=== PATIENT | female | born 2000 | race Hispanic/Latino ===

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

== ENCOUNTER 2019-01-13 22:50 | Outpatient (CLI) | payer MEDICAID ==
[2019-01-14] MEDS ORDERED: LACTATED RINGERS 1,000 ML ONE (00:58)
--- NOTE | 2019-01-14 01:14 | Ultrasound Report ---
OB ultrasound limited with biophysical profile. 01/14/2019. HISTORY: Evaluate well being and amniotic fluid index. FINDINGS: A single viable intrauterine in the cephalic position has heart tones of 14 4 bpm. Amniotic fluid index is 8 cm. biophysical profile is 8 out of 8. IMPRESSION: 1. Indeterminate fluid index 8 cm. 2. Biophysical profile 8 of 8. Signer Name: Juancarlos Poole MD Signed: 01/14/2019 1:10 AM Workstation Name: [id number]
[2019-01-14] MEDS ORDERED: LACTATED RINGERS 1,000 ML IV ONE (01:20)
[2019-01-14 01:54] VITALS: BP 102/58
== END 2019-01-14 02:24 | disposition home or self-care (01) ==
LOC: TRG 22:50
PROVIDERS: ATTEND Obstetrics & Gynecology
DX: O9A.213 Injury, poisoning and certain other consequences of external causes complicating pregnancy, third trimester (principal); S00.83XA Contusion of other part of head, initial encounter; O47.03 False labor before 37 completed weeks of gestation, third trimester; O26.893 Other specified pregnancy related conditions, third trimester; R10.9 Unspecified abdominal pain; O99.333 Smoking (tobacco) complicating pregnancy, third trimester; F17.200 Nicotine dependence, unspecified, uncomplicated; Z3A.31 31 weeks gestation of pregnancy; Y04.0XXA Assault by unarmed brawl or fight, initial encounter; Y93.89 Activity, other specified; Y92.89 Other specified places as the place of occurrence of the external cause; Y99.8 Other external cause status
CPT/HCPCS: 76815; 76819; J7120

== ENCOUNTER 2020-04-30 18:13 | Outpatient (CLI) | payer MEDICAID ==
[2020-04-30] MEDS ORDERED: LACTATED RINGERS 500 ML IV ONE (19:08)
[2020-04-30 19:24] VITALS: BP 121/63
--- NOTE | 2020-04-30 20:00 | Ultrasound Report ---
ULTRASOUND OBSTETRIC LIMITED INDICATION / CLINICAL INFORMATION: ЕКАТЕРИНА. Clinical Gestational Age (GA) in weeks, days: 33, 1 TECHNIQUE: Transabdominal. COMPARISON: None available. FINDINGS: HEART RATE (beats per minute): 141 AMNIOTIC FLUID INDEX (cm) = 8.2 (normal = 7-24 cm) PRESENTATION: Cephalic. ADDITIONAL FINDINGS: None. IMPRESSION: 1. Normal amniotic fluid index. Signer Name: Nito Burrows MD Signed: 04/30/2020 7:55 PM Workstation Name: [id number]
== END 2020-04-30 19:49 | disposition home or self-care (01) ==
LOC: TRG 18:13 → APU 18:14 → TRG 19:49
PROVIDERS: ATTEND Obstetrics & Gynecology
DX: O42.913 Preterm premature rupture of membranes, unspecified as to length of time between rupture and onset of labor, third trimester (principal); Z3A.33 33 weeks gestation of pregnancy
CPT/HCPCS: 59025; 76815

== ENCOUNTER 2020-12-31 04:17 | Emergency (ER) | payer MEDICAID ==
[2020-12-31 04:48] VITALS: BP 110/64
--- NOTE | 2020-12-31 08:01 | Emergency Department Report ---
- General Chief complaint: Skin/Abscess/Foreign Body Stated complaint: BAD HUGE BUMP UNDER ARM Time Seen by Provider: 12/31/20 07:29 Source: patient Mode of arrival: Ambulatory Limitations: No Limitations - History of Present Illness Initial comments: 20-year-old female presents to the emergency room reporting an bump under her left underarm x3 to 4 days. Patient states last night the pain had gotten worse. Patient states that she has never had this before. She reports is worse with touching and putting down her arm fully. States that she is notices gotten larger. Patient denies any fever chills or nausea no vomiting. She has an allergy to morphine. Currently takes no medications on a daily basis. MD complaint: abscess/boil Onset/Timin -: days(s) Tetanus Up to Date: yes Location: RUE (Axillary) Severity: moderate Quality: aching, sharp Consistency: constant Worsens with: palpation Context: none Associated symptoms: denies other symptoms Treatments Prior to Arrival: none - Related Data Previous Rx's Medication Instructions Recorded Last Taken Type HYDROcodone/APAP 5-325 [[place] 1 - 2 each PO Q4HR PRN #30 tablet 02/08/19 Unknown Rx 5/325] Ferrous Sulfate [Feosol 325 MG tab] 325 mg PO BID #60 tablet 02/11/19 Unknown Rx Ibuprofen [Motrin 800 MG tab] 800 mg PO Q6H PRN #30 tablet 02/11/19 Unknown Rx Vit-Fe Fumar-FA [ 1 each PO QDAY #30 tablet 02/11/19 Unknown Rx Vitamin] Ibuprofen [Motrin] 600 mg PO Q8H PRN #60 tablet 05/29/20 Unknown Rx oxyCODONE /ACETAMINOPHEN [Percocet 1 tab PO Q6HR PRN #20 tablet 05/29/20 Unknown Rx 5/325] Ibuprofen [Motrin 600 MG tab] 600 mg PO Q8H PRN #30 tablet 12/31/20 Unknown Rx Sulfamethoxazole/Trimethoprim 1 each PO BID 7 Days #14 tablet 12/31/20 Unknown Rx [Bactrim DS TAB] Allergies Allergy/AdvReac Type Severity Reaction Status Date / Time morphine Allergy Severe Anaphylaxis Verified 04/30/20 18:58 Abscess Boil HPI - HPI Chief Complaint: Skin/Abscess/Foreign Body Stated Complaint: BAD HUGE BUMP UNDER ARM Time Seen by Provider: 12/31/20 07:29 Home Medications: Previous Rx's Medication Instructions Recorded Last Taken Type HYDROcodone/APAP 5-325 [[place] 1 - 2 each PO Q4HR PRN #30 tablet 02/08/19 Unknown Rx 5/325] Ferrous Sulfate [Feosol 325 MG tab] 325 mg PO BID #60 tablet 02/11/19 Unknown Rx Ibuprofen [Motrin 800 MG tab] 800 mg PO Q6H PRN #30 tablet 02/11/19 Unknown Rx Vit-Fe Fumar-FA [ 1 each PO QDAY #30 tablet 02/11/19 Unknown Rx Vitamin] Ibuprofen [Motrin] 600 mg PO Q8H PRN #60 tablet 05/29/20 Unknown Rx oxyCODONE /ACETAMINOPHEN [Percocet 1 tab PO Q6HR PRN #20 tablet 05/29/20 Unknown Rx 5/325] Ibuprofen [Motrin 600 MG tab] 600 mg PO Q8H PRN #30 tablet 12/31/20 Unknown Rx Sulfamethoxazole/Trimethoprim 1 each PO BID 7 Days #14 tablet 12/31/20 Unknown Rx [Bactrim DS TAB] Allergies/Adverse Reactions: Allergies Allergy/AdvReac Type Severity Reaction Status Date / Time morphine Allergy Severe Anaphylaxis Verified 04/30/20 18:58 ED Review of Systems ROS: Stated complaint: BAD HUGE BUMP UNDER ARM Other details as noted in HPI Comment: All other systems reviewed and negative ED Past Medical Hx - Past Medical History Previous Medical History?: Yes Hx Hypertension: No Hx Heart Attack/AMI: No Hx Congestive Heart Failure: No Hx Diabetes: No Hx Deep Vein Thrombosis: No Hx Renal Disease: No Hx Sickle Cell Disease: No Hx Seizures: No Hx Asthma: No Hx COPD: No Hx HIV: No Additional medical history: herpes - Surgical History Past Surgical History?: No - Social History Smoking Status: Current Every Day Smoker Substance Use Type: None - Medications Home Medications: Home Medications Medication Instructions Recorded Confirmed Last Taken Type HYDROcodone/APAP 5-325 [[place] 1 - 2 each PO Q4HR PRN #30 tablet 02/08/19 05/29/20 Unknown Rx 5/325] Ferrous Sulfate [Feosol 325 MG tab] 325 mg PO BID #60 tablet 02/11/19 05/29/20 Unknown Rx Ibuprofen [Motrin 800 MG tab] 800 mg PO Q6H PRN #30 tablet 02/11/19 05/29/20 Unknown Rx Vit-Fe Fumar-FA [ 1 each PO QDAY #30 tablet 02/11/19 05/29/20 Unknown Rx Vitamin] Ibuprofen [Motrin] 600 mg PO Q8H PRN #60 tablet 05/29/20 Unknown Rx oxyCODONE /ACETAMINOPHEN [Percocet 1 tab PO Q6HR PRN #20 tablet 05/29/20 Unknown Rx 5/325] Ibuprofen [Motrin 600 MG tab] 600 mg PO Q8H PRN #30 tablet 12/31/20 Unknown Rx Sulfamethoxazole/Trimethoprim 1 each PO BID 7 Days #14 tablet 12/31/20 Unknown Rx [Bactrim DS TAB] ED Physical Exam - General Limitations: No Limitations General appearance: alert, in no apparent distress - Head Head exam: Present: atraumatic, normocephalic - Eye Eye exam: Present: normal appearance - ENT ENT exam: Present: normal external ear exam - Neck Neck exam: Present: normal inspection, full ROM - Respiratory Respiratory exam: Absent: respiratory distress, chest wall tenderness, accessory muscle use - Cardiovascular Cardiovascular Exam: Present: regular rate - Neurological Exam Neurological exam: Present: alert, oriented X3, normal gait - Psychiatric Psychiatric exam: Present: normal affect, normal mood - Expanded Skin Exam Expanded Type of lesion: Present: abscess Distribution of rash: RUE (Axillary) Description of rash: Present: tenderness, swelling, indurated. Absent: fluctuant ED Course Vital Signs 12/31/20 04:46 Temperature 98.6 F Pulse Rate 85 Respiratory 18 Rate Blood Pressure 110/64 O2 Sat by Pulse 99 Oximetry ED Medical Decision Making - Medical Decision Making 20-year-old female presents to the emergency room reporting an bump under her left underarm x3 to 4 days. Patient states last night the pain had gotten worse. Patient states that she has never had this before. She reports is worse with touching and putting down her arm fully. States that she is notices gotten larger. Patient denies any fever chills or nausea no vomiting. She has an allergy to morphine. Currently takes no medications on a daily basis. Discussed with patient this appears to be an abscess. We will place patient on Bactrim double strength for 7 days ibuprofen for pain management instructed for warm compresses and she may need to return back to have it drained. Patient verbalized understanding. Critical care attestation.: If time is entered above; I have spent that time in minutes in the direct care of this critically ill patient, excluding procedure time. ED Disposition Clinical Impression: Abscess of axilla, right Disposition: HOME / SELF CARE / HOMELESS Is pt being admited?: No Does the pt Need Aspirin: No Condition: Stable Instructions: Skin Abscess, [id number] Additional Instructions: Complete antibiotics as prescribed take pain medication as needed. Warm compress to the underarm 2-3 times a day. Return back to the emergency room if abscess gets worse. You may need to have it drained. Prescriptions: Sulfamethoxazole/Trimethoprim [Bactrim DS TAB] 1 each PO BID 7 Days #14 tablet Ibuprofen [Motrin 600 MG tab] 600 mg PO Q8H PRN #30 tablet PRN Reason: Pain Referrals: PRIMARY CARE, [Primary Care Provider] - 3-5 Days [facility] [Provider Group] - 3-5 Days Time of Disposition: 08:03
== END 2020-12-31 09:21 | disposition home or self-care (01) ==
LOC: ED 04:17
DX: L02.411 Cutaneous abscess of right axilla (principal); B00.9 Herpesviral infection, unspecified; F17.200 Nicotine dependence, unspecified, uncomplicated; Z88.5 Allergy status to narcotic agent
CPT/HCPCS: 99281

== ENCOUNTER 2021-08-21 04:19 | Emergency (ER) | payer MEDICAID ==
[2021-08-21] MEDS ORDERED: IBUPROFEN 600 MG TAB PO ONE (04:30)
--- NOTE | 2021-08-21 05:19 | XRay Report ---
RIGHT FOOT 3 VIEWS INDICATION / CLINICAL INFORMATION: ankle injury. COMPARISON: None available. FINDINGS: BONES / JOINT(S): No acute fracture or subluxation. No significant arthritis. SOFT TISSUES: No significant abnormality. ADDITIONAL FINDINGS: None. IMPRESSION: 1. No acute findings. Signer Name: Kunal Dumas MD Signed: 08/21/2021 5:14 AM Workstation Name: [id number]
--- NOTE | 2021-08-21 05:20 | XRay Report ---
RIGHT ANKLE 3 VIEW INDICATION / CLINICAL INFORMATION: ankle injury. COMPARISON: None available. FINDINGS: BONES / JOINT(S): No acute fracture or subluxation. No significant arthritis. SOFT TISSUES: No significant abnormality. ADDITIONAL FINDINGS: None. IMPRESSION: 1. No acute findings. Signer Name: Kunal Dumas MD Signed: 08/21/2021 5:15 AM Workstation Name: [facility]
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
[2021-08-21 05:58] VITALS: BP 117/71
== END 2021-08-21 05:58 | disposition home or self-care (01) ==
LOC: ED 04:19
DX: S93.401A Sprain of unspecified ligament of right ankle, initial encounter (principal); S93.601A Unspecified sprain of right foot, initial encounter; Z88.5 Allergy status to narcotic agent; X58.XXXA Exposure to other specified factors, initial encounter; F17.200 Nicotine dependence, unspecified, uncomplicated; Y93.89 Activity, other specified; Y92.89 Other specified places as the place of occurrence of the external cause; Y99.8 Other external cause status
CPT/HCPCS: 99283